=== PATIENT | female | born 1990 | race Hispanic/Latino ===

== ENCOUNTER 2020-11-13 15:28 | Outpatient (CLI) | payer OTHER, MEDICAID ==
[2020-11-13 15:55] VITALS: BP 106/67
[2020-11-13] MEDS ORDERED: LACTATED RINGERS 1,000 ML IV SCH (16:00)
[2020-11-13 17:18] LABS: Bilirubin,Urine NEG (Negative); Blood,Urine NEG (Negative); Color,Urine Straw (Yellow); Protein,Urine <15 mg/dL mg/dL (Negative); Urobilinogen,Urine < 2.0 mg/dL (<2.0)
[2020-11-13 17:27] LABS: Amphetamine Screen,Urine PRESUMPTIVE NEGATIVE; Benzodiazepines Screen,Urine PRESUMPTIVE NEGATIVE; Cannabinoid Screen,Urine PRESUMPTIVE NEGATIVE; Cocaine Screen,Urine PRESUMPTIVE NEGATIVE; Methadone Screen,Urine PRESUMPTIVE NEGATIVE; Opiate Screen,Urine PRESUMPTIVE NEGATIVE
== END 2020-11-13 19:42 | disposition home or self-care (01) ==
LOC: TRG 15:28 → EEVIPCON 15:28 → APU 15:29 → TRG 19:42
PROVIDERS: ATTEND Obstetrics & Gynecology
DX: O26.892 Other specified pregnancy related conditions, second trimester (principal); R42 Dizziness and giddiness; R10.2 Pelvic and perineal pain; O47.02 False labor before 37 completed weeks of gestation, second trimester; O24.419 Gestational diabetes mellitus in pregnancy, unspecified control; Z3A.25 25 weeks gestation of pregnancy; Z87.891 Personal history of nicotine dependence
CPT/HCPCS: 59025; 80307; 81001; 96360; 96361; J7120

== ENCOUNTER 2020-11-14 16:05 | Outpatient (CLI) | payer OTHER ==
[2020-11-14 16:46] VITALS: BP 101/69
[2020-11-14] MEDS ORDERED: ACETAMINOPHEN 500 MG TAB PO ONE (17:00)
[2020-11-14] MEDS ORDERED: LACTATED RINGERS 500 ML IV ONE (17:00)
== END 2020-11-14 17:23 | disposition home or self-care (01) ==
LOC: APU 16:05 → EEVIPCON 16:05 → TRG 16:05 → APU 16:06 → TRG 17:23
PROVIDERS: ATTEND Obstetrics & Gynecology
DX: O26.892 Other specified pregnancy related conditions, second trimester (principal); R10.9 Unspecified abdominal pain; Z3A.25 25 weeks gestation of pregnancy
CPT/HCPCS: 59025